=== PATIENT | female | born 1950 | race Caucasian/White ===

== ENCOUNTER → 2017-04-09 | Outpatient (CLI) | payer BC ==
[~2017-04-09] MED LIST: CALCIUM CITRAT200 MG PO; CEFTIN250 MG PO; FLOMAX 0.40.4 MG/CAP PO; MVI PO; PERCOCET 5/321 UDTAB PO; PHENERGAN 25 TA25 MG PO; PREMARIN0.625 MG PO
== END ==
LOC: COL.RAD 09:25
DX: M25.551 Pain in right hip (principal)
CPT/HCPCS: J3301; Q9967

== ENCOUNTER → 2018-02-04 | Outpatient (CLI) | payer MEDICARE, BC | LOC: COL.LAB 09:24 | DX: Z01.812 Encounter for preprocedural laboratory examination (principal) ==

== ENCOUNTER → 2018-10-27 | Outpatient (CLI) | payer MEDICARE, BC | LOC: MC.RAD 09:15 | DX: Z12.31 Encounter for screening mammogram for malignant neoplasm of breast (principal) ==

== ENCOUNTER → 2021-06-26 | Outpatient (CLI) | payer MEDICARE, BC | LOC: MC.RAD 10:38 | DX: Z12.31 Encounter for screening mammogram for malignant neoplasm of breast (principal) ==

== ENCOUNTER 2022-08-12 14:15 | Outpatient (RCR) | payer MEDICARE, BC | END 2022-08-17 | disposition home or self-care (01) | LOC: WSPT | DX: M25.511 Pain in right shoulder (principal); G89.29 Other chronic pain ==

== ENCOUNTER → 2023-10-19 | Outpatient (CLI) | payer MEDICARE, BC ==
[~2023-10-19] MED LIST changes: +AMOXICILLIN875 MG PO; +B-121000 MCG PO; +LEXAPRO20 MG PO; +MASON NATURAL2000 IU PO; +MULTI-VITAMIN W1 TA1 PO; +SINEMET 25/101 UDTAB PO
== END ==
LOC: MC.RAD 09:38
DX: Z12.31 Encounter for screening mammogram for malignant neoplasm of breast (principal)